=== PATIENT | female | born 1930 | race Hispanic/Latino ===

== ENCOUNTER 2017-12-01 13:16 | Emergency (ER) | payer MEDICARE ==
[2017-12-01 13:55] LABS: BASOPHILS % (AUTO) 0.7 % (0.0-5.0); EOSINOPHILS % (AUTO) 1.8 % (0.0-8.0); HEMATOCRIT 31.9 % (36-48); LYMPHOCYTES % (AUTO) 22.6 % (21.0-51.0); MEAN CORPUSCULAR HEMOGLOBIN 31.2 pg (27.0-33.0); MEAN CORPUSCULAR HGB CONC 33.4 g/dL (32.0-36.0); MEAN CORPUSCULAR VOLUME 93.5 fL (79-99); NEUTROPHILS % (AUTO) 68.9 % (40.0-77.0); PLATELET COUNT (AUTO) 177 K/uL (130-400); RED BLOOD CELL COUNT(AUTO) 3.41 MIL/uL (4.00-5.50); RED CELL DISTRIBUTION WIDTH 13.6 % (11.0-15.5)
[2017-12-01 14:06] LABS: CREATININE 1.2 mg/dL (0.5-1.5); POTASSIUM 4.8 mmol/L (3.5-5.1)
[2017-12-01 14:10] LABS: ALBUMIN 3.6 g/dL (3.5-5.0); BILIRUBIN,TOTAL 0.4 mg/dL (0.2-1.0); TOTAL PROTEIN, SERUM 7.5 g/dL (6.0-8.3)
== END 2017-12-01 14:29 | disposition home or self-care (01) ==
LOC: EDH 13:16
DX: I88.9 Nonspecific lymphadenitis, unspecified (principal); I89.0 Lymphedema, not elsewhere classified; I10 Essential (primary) hypertension; Z85.3 Personal history of malignant neoplasm of breast
CPT/HCPCS: 36415; 80053; 85025

== ENCOUNTER → 2020-05-05 | Outpatient (CLI) | payer OTHER, MEDICARE ==
[~2020-05-05] MED LIST: ASPI81TA40 PO; CALC0.5C11 PO; CALC600T15 PO; CHOL400T14 PO; CLOP75TA14 PO; DULO30CA52 PO; FISH1CAP63 PO; LEVO25TA54 PO; LISI-613 PO; NIFE30TA98 PO; SIMV40TA59 PO; TRAM-355 PO
== END | disposition home or self-care (01) ==
LOC: OIH 12:27
PROVIDERS: ATTEND Family Medicine
DX: Z01.818 Encounter for other preprocedural examination (principal); I35.0 Nonrheumatic aortic (valve) stenosis; E78.5 Hyperlipidemia, unspecified; E03.9 Hypothyroidism, unspecified; M47.814 Spondylosis without myelopathy or radiculopathy, thoracic region
CPT/HCPCS: 71046

== ENCOUNTER 2020-06-17 15:42 | Inpatient (IN) | payer OTHER, MEDICARE ==
[~2020-06-17] VITALS: Ht 152.4 cm; Wt 72.9 kg
[2020-06-17 16:29] LABS: BASOPHILS % (AUTO) 0.4 % (0.0-5.0); EOSINOPHILS % (AUTO) 1.1 % (0.0-8.0); HEMATOCRIT 26.3 % (36-48); LYMPHOCYTES % (AUTO) 14.6 % (21.0-51.0); MEAN CORPUSCULAR HEMOGLOBIN 31.6 pg (27.0-33.0); MEAN CORPUSCULAR HGB CONC 32.7 g/dL (32.0-36.0); MEAN CORPUSCULAR VOLUME 96.7 fL (79-99); MONOCYTES % (AUTO) 8.7 % (3.0-13.0); NEUTROPHILS % (AUTO) 74.6 % (40.0-77.0); PLATELET COUNT (AUTO) 395 K/uL (130-400); RED BLOOD CELL COUNT(AUTO) 2.72 MIL/uL (4.00-5.50); RED CELL DISTRIBUTION WIDTH 14.2 % (11.0-15.5)
[2020-06-17 16:43] LABS: CREATININE 1.9 mg/dL (0.5-1.5); POTASSIUM 4.8 mmol/L (3.5-5.1)
[2020-06-17 16:45] LABS: ALBUMIN 2.4 g/dL (3.5-5.0); BILIRUBIN,TOTAL 0.1 mg/dL (0.2-1.0); TOTAL PROTEIN, SERUM 7.2 g/dL (6.0-8.3)
[2020-06-17] MEDS ORDERED: MEROPENEM 1 GM VIAL ONE (16:58)
[2020-06-17] MEDS ORDERED: SODIUM CHLORIDE 0.9% 50 ML IV ONE (16:59)
[2020-06-17] MEDS ORDERED: GUAIFENESIN-DM 200/20 MG 10 ML PO PRN (18:15)
[2020-06-17] MEDS ORDERED: MAG HYDROX/AL HYDROX/SIMETH ES 30 ML SUSP UDCUP PO PRN (18:15)
[2020-06-17] MEDS ORDERED: DiphenhydrAMINE HCL 50 MG/ML VIAL IV PRN (18:15)
[2020-06-17] MEDS ORDERED: ACETAMINOPHEN 325 MG TAB PO PRN (18:15)
[2020-06-17] MEDS ORDERED: LACTULOSE 20 GM/30 ML UDCUP PO PRN (18:15)
[2020-06-17] MEDS ORDERED: DIPHENHYDRAMINE HCL 25 MG CAPSULE PO PRN (18:15)
[2020-06-17] MEDS ORDERED: ZOLPIDEM TARTRATE 5 MG TAB PO PRN (18:15)
[2020-06-17] MEDS ORDERED: NITROGLYCERIN 0.4 MG SL TAB SL PRN (18:15)
[2020-06-17] MEDS ORDERED: MORPHINE SULFATE 2 MG/ML 1ML SYG IV PRN (18:15)
[2020-06-17] MEDS ORDERED: VANCOMYCIN PROTOCOL PER PHARMACY IV PRN (18:15)
[2020-06-17] MEDS ORDERED: ONDANSETRON HCL 4 MG/2 ML VIAL IV PRN (18:15)
[2020-06-17] MEDS ORDERED: COMPOUND IV REFRIGERATED 1 EACH IVSOLN MISC PRN (19:30)
[2020-06-17] MEDS ORDERED: VANCOMYCIN 1.5 GM in SODIUM CHLORIDE 0.9% 250 ML IV ONE (19:30)
[2020-06-17] MEDS ORDERED: MORPHINE SULFATE 2 MG/ML 1ML SYG ONE (20:18)
[2020-06-17] MEDS ORDERED: ONDANSETRON HCL 4 MG/2 ML VIAL ONE (20:18)
[2020-06-17] MEDS ORDERED: FAMOTIDINE/PF 20 MG/2 ML VIAL IV ONE (20:19)
[2020-06-18] VITALS (7 sets, daily range): BP systolic 120–143; BP diastolic 53–74
[2020-06-18 05:51] LABS: BASOPHILS % (AUTO) 0.5 % (0.0-5.0); EOSINOPHILS % (AUTO) 1.4 % (0.0-8.0); HEMATOCRIT 26.1 % (36-48); LYMPHOCYTES % (AUTO) 15.6 % (21.0-51.0); MEAN CORPUSCULAR HEMOGLOBIN 29.2 pg (27.0-33.0); MEAN CORPUSCULAR VOLUME 94.2 fL (79-99); MONOCYTES % (AUTO) 8.1 % (3.0-13.0); NEUTROPHILS % (AUTO) 74.2 % (40.0-77.0); PLATELET COUNT (AUTO) 378 K/uL (130-400); RED BLOOD CELL COUNT(AUTO) 2.77 MIL/uL (4.00-5.50); RED CELL DISTRIBUTION WIDTH 13.9 % (11.0-15.5); WHITE BLOOD COUNT (AUTO) 5.8 K/uL (4.8-10.8)
[2020-06-18 06:07] LABS: ALBUMIN 2.2 g/dL (3.5-5.0); BILIRUBIN,TOTAL 0.2 mg/dL (0.2-1.0); CREATININE 1.6 mg/dL (0.5-1.5); POTASSIUM 5.5 mmol/L (3.5-5.1); TOTAL PROTEIN, SERUM 6.8 g/dL (6.0-8.3)
--- NOTE | 2020-06-18 06:40 | NUR ---
DR RENTERIA CONSULT SPOKE WITH SHAMIKA PANDEY ABOUT NEW CONSULT FOR DR RENTERIA. SHE STATED THAT SHE WOULD LET DR RENTERIA KNOW ABOUT PT. ASKED THEY COULD GIVE US A COURTESY CALL TO SEE WHAT DR RENTERIA SAID.
[2020-06-18] MEDS ORDERED: SODIUM POLYSTYRENE SULFONATE 15 GM/60 ML ML PO SCH (06:53)
[2020-06-18] MEDS: ENOXAPARIN SODIUM 30 MG/0.3 ML SQ SCH (09:13)
[2020-06-18] MEDS: FAMOTIDINE/PF 20 MG/2 ML VIAL IV SCH (09:14)
[2020-06-18] MEDS: SODIUM CHLORIDE 0.9% 1000ML 1,000 ML IV SCH ×2 (09:15→14:12)
[2020-06-18] MEDS ORDERED: DOXY100T2 PO (10:20)
[2020-06-18] MEDS ORDERED: SIMV-43 PO (10:20)
[2020-06-18] MEDS ORDERED: MUPI22OI2 TP (10:20)
--- NOTE | 2020-06-18 14:45 | NUR ---
DCP CM met with pt in room discussed dc plans. Pt is independent prior to admission, lives at home alone, daughter and sister lives close by. Pt has a walker, cane, wheelchair. Denies any other equipments/services. Feels safe to go back home, family able to assist with transportation and needs. Asked pt if ok to call daughter on facesheet, pt agreeable. Called daughter on facesheet while in pt room, spoke to Yuliet Griffin , CM verified all info is correct. As per daughter current [place]: [address] [place] [address]. Daughter also verbalized she takes care of pt during night and pt's sister takes care of pt during day, brother Charles Arzate will be able to provide transportation once pt ready to dc. DC plan to home once stable. CM to continue to follow up. Addendum: 06/18/20 at 1455 by DEBORAH AWAD LVN CM Amended: Links added.
[2020-06-18] MEDS: ACETAMINOPHEN 325 MG TAB PO PRN (17:37)
[2020-06-18] MEDS: PHARMACY COMMUNICATION MISC SCH ×2 (19:00→23:00)
--- NOTE | 2020-06-18 19:40 | NUR ---
SHAMIKA REYNOLDS ALSO STATED THAT SHE WOULD REINFORM THE OFFICE ABOUT PENDING CONSULT.
--- NOTE | 2020-06-18 19:40 | NUR ---
DR RENTERIA CONSULT SPOKE WITH SHAMIKA PANDEY ABOUT DR RENTERIA AGAIN. SHE STATED THAT SHE LEFT THE PATIENT'S INFORMATION WITH THE OFFICE. THERE WAS NO CONTACT MADE FROM DR RENTERIA'S OFFICE IN REGARDS TO THE CONSULT. WILL INFORM NAOMIE ALEGRIA.
[2020-06-18] MEDS: CEFAZOLIN SODIUM 1 GM VIAL IVP SCH (20:47)
[2020-06-19] MEDS: SODIUM CHLORIDE 0.9% 1000ML 1,000 ML IV SCH ×3 (02:40→22:03)
[2020-06-19] MEDS: PHARMACY COMMUNICATION MISC SCH (03:00)
[2020-06-19 04:00] VITALS: BP 154/68
[2020-06-19 05:43] LABS: BASOPHILS % (AUTO) 0.7 % (0.0-5.0); EOSINOPHILS % (AUTO) 1.4 % (0.0-8.0); HEMATOCRIT 28.1 % (36-48); LYMPHOCYTES % (AUTO) 18.5 % (21.0-51.0); MEAN CORPUSCULAR HEMOGLOBIN 29.5 pg (27.0-33.0); MEAN CORPUSCULAR VOLUME 95.3 fL (79-99); MONOCYTES % (AUTO) 8.8 % (3.0-13.0); NEUTROPHILS % (AUTO) 70.1 % (40.0-77.0); PLATELET COUNT (AUTO) 409 K/uL (130-400); RED BLOOD CELL COUNT(AUTO) 2.95 MIL/uL (4.00-5.50); RED CELL DISTRIBUTION WIDTH 14.2 % (11.0-15.5); WHITE BLOOD COUNT (AUTO) 5.6 K/uL (4.8-10.8)
[2020-06-19 06:08] LABS: CREATININE 1.2 mg/dL (0.5-1.5); POTASSIUM 4.4 mmol/L (3.5-5.1)
[2020-06-19] MEDS: CEFAZOLIN SODIUM 1 GM VIAL IVP SCH ×2 (06:20→18:00)
[2020-06-19] MEDS: ACETAMINOPHEN 325 MG TAB PO PRN ×2 (06:25→23:41)
[2020-06-19 08:00] VITALS: BP 104/84
[2020-06-19] MEDS ORDERED: ASPI-891 PO (08:38)
[2020-06-19] MEDS ORDERED: DULO30CA52 PO (08:38)
[2020-06-19] MEDS: VANCOMYCIN 1GM+NS 250ML 250 ML IV SCH (09:04)
[2020-06-19] MEDS: FAMOTIDINE/PF 20 MG/2 ML VIAL IV SCH (09:05)
[2020-06-19] MEDS: ENOXAPARIN SODIUM 30 MG/0.3 ML SQ SCH (09:05)
[2020-06-19] MEDS: CALCITRIOL 0.25 MCG CAPSULE PO SCH (11:50)
[2020-06-19 12:00] VITALS: BP 128/53
[2020-06-19] MEDS: LISINOPRIL 20 MG TABLET PO SCH (13:58)
[2020-06-19] MEDS: CALCIUM 600 + VITAMIN D 400 TABLET PO SCH (13:58)
[2020-06-19] MEDS: DULOXETINE HCL 30 MG CAP PO SCH (13:59)
[2020-06-19] MEDS: CLOPIDOGREL BISULFATE 75 MG TAB PO SCH (13:59)
[2020-06-19] MEDS: NIFEDIPINE ER 30 MG TAB PO SCH (13:59)
[2020-06-19 16:00] VITALS: BP 140/83
[2020-06-19 19:05] VITALS: BP 129/59
[2020-06-19] MEDS: SIMVASTATIN 20 MG TABLET PO SCH (22:01)
[2020-06-20] VITALS (7 sets, daily range): BP systolic 118–159; BP diastolic 49–83
[2020-06-20] MEDS: LEVOTHYROXINE 25 MCG TABLET PO SCH (06:33)
[2020-06-20] MEDS: CEFAZOLIN SODIUM 1 GM VIAL IVP SCH ×2 (06:33→18:40)
[2020-06-20 06:35] LABS: BASOPHILS % (AUTO) 0.6 % (0.0-5.0); EOSINOPHILS % (AUTO) 1.6 % (0.0-8.0); HEMATOCRIT 26.1 % (36-48); LYMPHOCYTES % (AUTO) 22.2 % (21.0-51.0); MEAN CORPUSCULAR HEMOGLOBIN 29.7 pg (27.0-33.0); MEAN CORPUSCULAR HGB CONC 31.8 g/dL (32.0-36.0); MEAN CORPUSCULAR VOLUME 93.5 fL (79-99); MONOCYTES % (AUTO) 7.8 % (3.0-13.0); NEUTROPHILS % (AUTO) 67.4 % (40.0-77.0); PLATELET COUNT (AUTO) 389 K/uL (130-400); RED BLOOD CELL COUNT(AUTO) 2.79 MIL/uL (4.00-5.50); WHITE BLOOD COUNT (AUTO) 5.1 K/uL (4.8-10.8)
[2020-06-20 06:52] LABS: ALBUMIN 2.1 g/dL (3.5-5.0); BILIRUBIN,TOTAL 0.1 mg/dL (0.2-1.0); POTASSIUM 3.8 mmol/L (3.5-5.1); TOTAL PROTEIN, SERUM 6.2 g/dL (6.0-8.3)
[2020-06-20] MEDS ORDERED: LEVOTHYROXINE 25 MCG TABLET PO SCH (07:30)
[2020-06-20] MEDS: CALCITRIOL 0.25 MCG CAPSULE PO SCH (09:00)
[2020-06-20] MEDS ORDERED: NON-FORMULARY MEDICATION 1 EACH (Calcium Carbonate (Calcium) 600 MG) PO SCH (09:00)
[2020-06-20] MEDS ORDERED: CHOLECALCIFEROL 400 UNIT PO SCH (09:00)
[2020-06-20] MEDS: CALCIUM 600 + VITAMIN D 400 TABLET PO SCH (09:18)
[2020-06-20] MEDS: LISINOPRIL 20 MG TABLET PO SCH (09:18)
[2020-06-20] MEDS: NIFEDIPINE ER 30 MG TAB PO SCH (09:18)
[2020-06-20] MEDS: ASPIRIN 325MG EC TAB 325 MG TABLET.DR PO SCH (09:19)
[2020-06-20] MEDS: DULOXETINE HCL 30 MG CAP PO SCH (09:19)
[2020-06-20] MEDS: FAMOTIDINE/PF 20 MG/2 ML VIAL IV SCH (09:19)
[2020-06-20] MEDS: CLOPIDOGREL BISULFATE 75 MG TAB PO SCH (09:19)
[2020-06-20] MEDS: ENOXAPARIN SODIUM 30 MG/0.3 ML SQ SCH (09:20)
[2020-06-20] MEDS: ACETAMINOPHEN 325 MG TAB PO PRN (10:48)
[2020-06-20] MEDS: SIMVASTATIN 20 MG TABLET PO SCH (20:57)
[2020-06-21] MEDS: ACETAMINOPHEN 325 MG TAB PO PRN (00:04)
[2020-06-21 04:05] VITALS: BP 124/62
[2020-06-21] MEDS: LEVOTHYROXINE 25 MCG TABLET PO SCH (05:56)
[2020-06-21] MEDS: CEFAZOLIN SODIUM 1 GM VIAL IVP SCH (05:56)
[2020-06-21 07:34] LABS: BASOPHILS % (AUTO) 0.8 % (0.0-5.0); EOSINOPHILS % (AUTO) 2.2 % (0.0-8.0); LYMPHOCYTES % (AUTO) 23.2 % (21.0-51.0); MEAN CORPUSCULAR HEMOGLOBIN 30.4 pg (27.0-33.0); MEAN CORPUSCULAR HGB CONC 31.3 g/dL (32.0-36.0); MEAN CORPUSCULAR VOLUME 97.2 fL (79-99); MONOCYTES % (AUTO) 6.9 % (3.0-13.0); NEUTROPHILS % (AUTO) 66.1 % (40.0-77.0); PLATELET COUNT (AUTO) 334 K/uL (130-400); RED BLOOD CELL COUNT(AUTO) 3.19 MIL/uL (4.00-5.50); RED CELL DISTRIBUTION WIDTH 14.5 % (11.0-15.5)
[2020-06-21 07:40] LABS: ALBUMIN 2.4 g/dL (3.5-5.0); BILIRUBIN,TOTAL 0.1 mg/dL (0.2-1.0); POTASSIUM 4.1 mmol/L (3.5-5.1); TOTAL PROTEIN, SERUM 6.8 g/dL (6.0-8.3)
[2020-06-21 08:00] VITALS: BP 147/63
--- NOTE | 2020-06-21 08:10 | NUR ---
PATIENT ASSESSED AND HAS A LARGE INCISION THAT IS HEALING WELL TO RIGHT KNEE WITHOUT REDNESS AND HAS A SALINE LOCK TO RIGHT HAND. PATIENT INSTRUCTED ON PLAN OF CARE AND POSSIBLE DISCHARGE TO HOME THIS AFTERNOON OR EVENING.
[2020-06-21] MEDS: LISINOPRIL 20 MG TABLET PO SCH (08:24)
[2020-06-21] MEDS: NIFEDIPINE ER 30 MG TAB PO SCH (08:24)
[2020-06-21] MEDS: FAMOTIDINE/PF 20 MG/2 ML VIAL IV SCH (08:24)
[2020-06-21] MEDS: ASPIRIN 325MG EC TAB 325 MG TABLET.DR PO SCH (08:25)
[2020-06-21] MEDS: DULOXETINE HCL 30 MG CAP PO SCH (08:25)
[2020-06-21] MEDS: VANCOMYCIN 1GM+NS 250ML 250 ML IV SCH (08:26)
[2020-06-21] MEDS: CALCIUM 600 + VITAMIN D 400 TABLET PO SCH (08:26)
[2020-06-21] MEDS: CLOPIDOGREL BISULFATE 75 MG TAB PO SCH (08:26)
[2020-06-21] MEDS: CALCITRIOL 0.25 MCG CAPSULE PO SCH (08:27)
[2020-06-21] MEDS: ENOXAPARIN SODIUM 30 MG/0.3 ML SQ SCH (08:27)
--- NOTE | 2020-06-21 10:30 | NUR ---
DR. MUNGUIA ROUNDED AND INDICATED PATIENT COULD BE DISCHARGED AND SCRIPT WRITTEN FOR ANTIBIOTICS.
[2020-06-21 12:00] VITALS: BP 139/80
--- NOTE | 2020-06-21 15:00 | NUR ---
DR. Jennings. AND HASEEB LEVINE NP ROUNDED AND DISCHARGED PT TO HOME. DR. Jennings WAS MADE AWARE OF PATIENT ALREADY DISCHARGED BY DR. MUNGUIA WITH A SCRIPT FOR ANTIBIOTICS.
[2020-06-21 16:00] VITALS: BP 136/56
--- NOTE | 2020-06-21 17:15 | NUR ---
DISCHARGE INSTRUCTIONS GIVEN IN [place] FOR PATIENT TO UNDERSTAND, BUT REQUESTED IN[place]ES[place] INSTRUCTIONS SO HER DAUGHTER COULD READ HER DISCHARGE PAPERWORK. PATIENT CALM AND ORIENTED AND DENIES PAIN. Addendum: 06/21/20 at 1803 by ARTIS HARRIS RN SALINE LOCK TO RIGHT HAND REMOVED AFTER DISCHARGE INSTRUCTIONS WERE GIVEN. IV SITE WNL.
--- NOTE | 2020-06-21 17:55 | NUR ---
PATIENT WAS TAKEN VIA W/C TO FAMILY VEHICLE AND WAS DISCHARGED TO DAUGHTER IN STABLE CONDITION. PATIENT DENIES PAIN AND TOLERATING ACTIVITY WELL.
== END 2020-06-21 18:00 | disposition home or self-care (01) | DRG 603 ==
LOC: EDH 15:42 → EDHIP 15:43 → 3BH 23:08
PROVIDERS: ADMIT Hospitalist; ATTEND Hospitalist
DX: L03.115 Cellulitis of right lower limb (principal); E87.1 Hypo-osmolality and hyponatremia; N17.9 Acute kidney failure, unspecified; N18.9 Chronic kidney disease, unspecified; Z96.651 Presence of right artificial knee joint; I12.9 Hypertensive chronic kidney disease with stage 1 through stage 4 chronic kidney disease, or unspecified chronic kidney disease; E87.5 Hyperkalemia; E66.9 Obesity, unspecified; Z88.1 Allergy status to other antibiotic agents; Z82.3 Family history of stroke; Z82.49 Family history of ischemic heart disease and other diseases of the circulatory system; Z85.3 Personal history of malignant neoplasm of breast; Z90.10 Acquired absence of unspecified breast and nipple; Z68.31 Body mass index [BMI] 31.0-31.9, adult
CPT/HCPCS: 36415; 73562; 73700; 76882; 80048; 80053; 80202; 84132; 85025; 87040; 87070; 87076; 93971; 94664; G0378; J0690; J1650; J2185; J2405; J3370; J3490; J7030; J7050

== ENCOUNTER 2020-07-11 17:02 | Emergency (ER) | payer OTHER, MEDICARE ==
[~2020-07-11 17:02] MED LIST changes: +ASPI-891 PO; -ASPI81TA40 PO; +MUPI22OI2 TP; +SIMV-43 PO; -SIMV40TA59 PO
[2020-07-11] MEDS ORDERED: SODIUM CHLORIDE 0.9% 1000ML 1,000 ML IV ONE (17:03)
[2020-07-11] MEDS ORDERED: ONDANSETRON HCL 4 MG/2 ML VIAL ONE (17:54)
[2020-07-11] MEDS ORDERED: FAMOTIDINE/PF 20 MG/2 ML VIAL IV ONE (17:54)
[2020-07-11 18:57] LABS: APPEARANCE,URINE Clear (CLEAR); BASOPHILS % (AUTO) 0.2 % (0.0-5.0); BILIRUBIN,URINE Negative (NEGATIVE); COLOR,URINE Dark Yellow (YELLOW); EOSINOPHILS % (AUTO) 1.6 % (0.0-8.0); GLUCOSE, URINE (UA) Negative (NEGATIVE); HEMATOCRIT 29.2 % (36-48); KETONES,URINE Trace mg/dL (NEGATIVE); LEUKOCYTE ESTERASE ,URINE Small (NEGATIVE); LYMPHOCYTES % (AUTO) 9.4 % (21.0-51.0); MEAN CORPUSCULAR HEMOGLOBIN 30.5 pg (27.0-33.0); MEAN CORPUSCULAR HGB CONC 32.2 g/dL (32.0-36.0); MEAN CORPUSCULAR VOLUME 94.8 fL (79-99); MONOCYTES % (AUTO) 6.8 % (3.0-13.0); NEUTROPHILS % (AUTO) 81.6 % (40.0-77.0); NITRATE,URINE Negative (NEGATIVE); OCCULT BLOOD,URINE Negative (NEGATIVE); PLATELET COUNT (AUTO) 289 K/uL (130-400); PROTEIN,URINE Negative (NEGATIVE); RED BLOOD CELL COUNT(AUTO) 3.08 MIL/uL (4.00-5.50); RED CELL DISTRIBUTION WIDTH 14.7 % (11.0-15.5); WHITE BLOOD COUNT (AUTO) 8.3 K/uL (4.8-10.8)
[2020-07-11 19:00] LABS: CREATININE 1.5 mg/dL (0.5-1.5); POTASSIUM 4.3 mmol/L (3.5-5.1)
[2020-07-11 19:08] LABS: BACTERIA,URINE Few /HPF (None Seen); MUCUS,URINE Few LPF (None Seen); SQUAMOUS EPITHELIAL CELL,UR Moderate /HPF (0-2); URIC ACID CRYSTALS,URINE Few /LPF (None Seen)
[2020-07-11 21:18] LABS: BILIRUBIN,TOTAL 0.1 mg/dL (0.2-1.0)
[2020-07-11 21:29] LABS: BILIRUBIN,DIRECT 0.1 mg/dL (0.0-0.3)
== END 2020-07-11 21:57 | disposition home or self-care (01) ==
LOC: EDH 17:02
DX: E86.0 Dehydration (principal); R11.2 Nausea with vomiting, unspecified; E03.9 Hypothyroidism, unspecified; E78.00 Pure hypercholesterolemia, unspecified; I10 Essential (primary) hypertension; Z85.3 Personal history of malignant neoplasm of breast; Z98.890 Other specified postprocedural states
CPT/HCPCS: 36415; 80048; 80076; 81001; 83605; 83690; 84484; 85025; 93005; 96361; 96374; 96375; 99284; J2405; J3490; J7030